=== PATIENT | male | born 1960 | race African-American/Black ===

== ENCOUNTER 2019-02-22 09:46 | Emergency (ER) ==
[2019-02-22 09:53] VITALS: TEMP 97.2; BMI 25.6
--- NOTE | 2019-02-22 10:08 | ED.PDOC ---
General ED Provider: Dr. BAKARI FELDMAN Chief Complaint: Syncope Stated Complaint: WEAKNESS, NEAR SYNCOPE. States was working in a house when he bent over, then suddenly stood up (staighted up) and experienced profound dizziness, light headedness feeling as if he would pass out/ Co Worker was there to assist him, prevented him from falling. [place] pain in back of neck, recurrent and previouls advised he had a pinched nerve. Time Seen by Physician: 10:00 Mode of Arrival: Wheelchair Information Source: Patient, Family Referred to ED by: PCP (Within 1-2 weeks) Nursing and Triage Documentation Reviewed and Agree: Yes Does patient meet sepsis criteria?: No System Inflammatory Response Syndrome: Not Applicable Sepsis Protocol: For patient's 13 years and over: Temp is 96.8 and below OR 101 and greater Pulse >90 BPM Resp >20/minute Acutely Altered Mental Status Are patient's symptoms suggestive of a new infection, such as: -Pneumonia -Skin, Soft Tissue -Endocarditis -UTI -Bone, Joint Infection -Implantable Device -Acute Abdominal Infection -Wound Infection -Meningitis -Blood Stream Catheter Infection -Unknown Neurological Complaint Exam - Syncope/Near Syncope Complaint/Exam Onset/Duration: 45 min ago Symptoms Are: Resolved Episodes Lasting: Minutes Number of Episodes: 1 Episodes Witnessed: Yes Loss of Consciousness: No Associated Head Trauma: No Review of Systems - Review Of Systems Constitutional: Reports: No symptoms Eyes: Reports: No symptoms Ears, Nose, Mouth, Throat: Reports: No symptoms Respiratory: Reports: No symptoms Cardiac: Reports: Lightheadedness GI: Reports: No symptoms : Reports: No symptoms Musculoskeletal: Reports: No symptoms Skin: Reports: No symptoms Neurological: Reports: Numbness (Lt cervical spine deg related change with symptoms LT U/L Extremity at times), Other (dizziness) Endocrine: Reports: No symptoms Hematologic/Lymphatic: Reports: No symptoms All Other Systems: Reviewed and Negative Past Medical History - Past Medical History Previously Healthy: Yes Endocrine: Reports: None Cardiovascular: Reports: None Respiratory: Reports: None Hematological: Reports: None Gastrointestinal: Reports: None Genitourinary: Reports: None Neuro/Psych: Reports: None Musculoskeletal: Reports: None, Other (neck pain) Cancer: Reports: None - Surgical History General Surgical History: Reports: None - Family History Family History: Reports: None - Social History Smoking Status: Current every day smoker, Light tobacco smoker Hx Substance Use: No Alcohol Screening: None Physical Exam - Physical Exam Appearance: Well-appearing, No pain distress, Well-nourished Ill-appearing: None Pain Distress: None Eyes: ARCHIE, EOMI, Conjunctiva clear ENT: Ears normal, Nose normal, Oropharynx normal Respiratory: Airway patent, Breath sounds clear, Breath sounds equal, Respirations nonlabored Cardiovascular: RRR, Pulses normal, No rub, No murmur GI/: Soft, Nontender, No masses, Bowel sounds normal, No Organomegaly Musculoskeletal: Normal strength, ROM intact, No edema, No calf tenderness Skin: Warm, Dry, Normal color Neurological: Sensation intact, Motor intact, Reflexes intact, Cranial nerves intact, Alert, Oriented Psychiatric: Affect appropriate, Mood appropriate Interpretation - Radiology Interpretation Radiology Interpretation By: Radiologist Exam Interpreted: CT Scan (Cervical -deg disc disease, facet joint disease/ Ct Head-age related changes) Critical Care Note - Critical Care Note Total Time (mins): 60 Course - Course Hematology/Chemistry: 02/22/19 09:55 02/22/19 09:55 Orders, Labs, Meds: Lab Review 02/22/19 02/22/19 02/22/19 09:55 09:55 09:55 WBC 3.29 L RBC 5.33 Hgb 15.2 Hct 42.5 MCV 79.7 L MCH 28.5 MCHC 35.8 H RDW Coeff of Tiki 13.8 Plt Count 144 Immature Gran % (Auto) 0.3 Neut % (Auto) 46.5 Lymph % (Auto) 44.1 [place] % (Auto) 6.4 Eos % (Auto) 2.4 Baso % (Auto) 0.3 Immature Gran # (Auto) 0.0 Neut # (Auto) 1.5 L Lymph # (Auto) 1.5 [place] # (Auto) 0.2 L Eos # (Auto) 0.1 Baso # (Auto) 0.0 Sodium 138.6 Potassium 3.69 Chloride 102.6 Carbon Dioxide 28.3 Anion Gap 11.39 BUN 11.6 Creatinine 0.90 Estimated GFR (MDRD) 106.00 BUN/Creatinine Ratio 12.88 Glucose 133.7 H Calcium 9.54 Total Bilirubin 1.71 H AST 28.5 ALT 22.3 Alkaline Phosphatase 50.7 Troponin I < 0.012 Total Protein 7.89 Albumin 4.51 Globulin 3.38 Albumin/Globulin Ratio 1.33 Influ A Molecular Assay Negative by naat Influ B Molecular Assay Negative by naat Orders Category Date Time Status EKG-(ED ONLY) Stat CARDIO 02/22/19 10:12 Completed CBC W/ AUTO DIFF Stat LAB 02/22/19 09:55 Completed CMP [COMPREHENSIVE METABOLIC PANEL] Stat LAB 02/22/19 09:55 Completed FLU A & B MOLECULAR [FLU A/B MOLECULAR] Stat LAB 02/22/19 09:55 Completed RAPID STREP SCREEN [MOLECULAR GROUP A STREP] Stat LAB 02/22/19 09:55 Completed TROPONIN I Stat LAB 02/22/19 09:[address] CERVICAL SPINE W/O CONTRAST Stat RADS 02/22/19 10:[address] HEAD W/O CONTRAST Stat RADS 02/22/19 10:12 Completed Vital Signs: Temp Pulse Resp BP Pulse Ox 02/22/19 11:02 48 L 16 120/69 02/22/19 09:47 97.2 F L 74 20 151/81 H 98 Departure - Departure Time of Disposition: 11:30 Disposition: HOME SELF-CARE Discharge Problem: Postural dizziness with near syncope, Bradycardia on ECG, Cervicalgia, Other cervical disc degeneration at C5-C6 level Instructions: Hypotension (ED), Cervical Spinal Stenosis (ED), Bradycardia (ED) , Near Syncope (ED), Degenerative Disc Disease (ED) Condition: Good Pt referred to PMD for follow-up: Yes (See PMD in 7-14 days) IPMP verified?: No Additional Instructions: Change positions slowly Avoid abrupt change in positions that potentially can cause orthostatic dizziness and loss of consciousness May take Ibuprofen or tylenol for pain Schedule follow up appointment with PCP. Suggest Holter monitor and MRI cervical spine Avoid climbing heights If dizziness persistent avoid driving Allergies/Adverse Reactions: Allergies cashew nut Adverse Reaction (Verified 02/22/19 09:56) tramadol Adverse Reaction (Verified 02/22/19 09:56) Home Medications: Ambulatory Orders 1 [No Reported Medications] 02/22/19 Disposition Discussed With: Patient, Family Musculoskeletal Complaint Exam - Neck Pain Complaint/Exam Mechanism of Injury: Reports: No known trauma Onset/Duration: Several months ago Symptoms Are: Still present (intermittently) Timing: Intermittent Episodes Lasting: Minutes Initial Severity: Mild Current Severity: Mild Location: Reports: Discrete, Radiating (Lt cervical into shoulder and lt arm) Character: Reports: Aching Aggravating: Reports: Movement Alleviating: Reports: Position Associated Signs and Symptoms: Denies: Swelling, Redness, Bruising, Fever, Nuchal rigidity, Weakness, Headache, Paresthesia Related History: Reports: Similar episode Meningitis Risk Factors: Reports: None Cervical Spine Injury Risk Factors: Reports: None Related Surgical History: Reports: None Carotid Bruit Present: No Pain on Passive Flexion: No Positive Kernig's Sign: No ROM Limited In: Present: Left, Side bending Tenderness: Present: Paraspinal Radiates to: Present: Left arm Focal Weakness: Present: None Focal Sensory Loss: Reports: None Nexus Low Risk Criteria: No post-midline CS tender, No evidence of intoxicat., No Altered LOC, No focal neuro deficit, No distracting injuries Differential Diagnoses: Other (Cervical degerative joint disease)
--- NOTE | 2019-02-22 11:02 | CT ---
EXAM: CT Head HISTORY: Dizziness COMPARISON: None TECHNIQUE: CT head performed without contrast FINDINGS: There is no mass effect, midline shift, or intracranial hemmorhage. Flor white differenti ation is preserved. There is no extra-axial collection. The ventricles, sulci, and basal cisterns a re patent and symmetric. There is mild chronic ischemic disease of the white matter and cerebral vol ume loss. There is no depressed calvarial fracture. The mastoid air cells are clear. Mild mucosal t hickening of the maxillary a sinuses with area of polypoid mucosal thickening left maxillary sinus li rose mucous retention cyst. Mild mucosal thickening ethmoid air cells. There are intracranial athe rosclerotic calcifications. IMPRESSION: 1. No acute intracranial abnormality. 2. Mild chronic ischemic disease of the white matter and cerebral volume loss. 3. Sinusitis/sinus mucosal changes.
--- NOTE | 2019-02-22 11:09 | CT ---
EXAM: CT cervical spine without contrast HISTORY: Numbness and shoulder pain, left side of neck, 4 months COMPARISON: None TECHNIQUE: CT cervical spine performed without intravenous contrast. Coronal and sagittal reformatt ed images obtained. FINDINGS: Straightening of the normal cervical lordosis. Vertebral bodies normal height. No fractu re. No subluxation. Mild intervertebral disc space narrowing C5-C6 and moderate intervertebral disc space narrowing C6-C7. Endplate degenerative change C6-C7. Multilevel facet and uncovertebral hype rtrophy. Prevertebral soft tissues appear normal. Mild emphysema lung apices C2-C3: Posterior disc osteophyte complex and facet arthrosis causing moderate right neural foraminal narrowing. C3-C4: Posterior disc osteophyte complex and facet arthrosis causing mild central canal and moderate bilateral neural foraminal narrowing. C4-C5: Posterior disc osteophyte complex and facet arthrosis causing mild to moderate central canal and mild bilateral neural foraminal narrowing. C5-C6: Posterior disc osteophyte complex and facet arthrosis causing moderate central canal, mild ri ght and moderate left neural foraminal narrowing. C6-C7: Posterior disc osteophyte complex and facet arthrosis causing moderate central canal and mode rate to severe bilateral neural foraminal narrowing. C7-T1: Posterior disc osteophyte complex and facet arthrosis causing mild right neural foraminal jesse rowing. IMPRESSION: 1. No fracture or subluxation. 2. Chronic discogenic degenerative disease and facet arthrosis. Please see segmental analysis, noti ng multilevel central canal and neural foraminal narrowing. 3. Straightening of the normal cervical lordosis. 4. Mild emphysema.
[2019-02-22 11:59] VITALS: BP 118/71
== END 2019-02-22 12:00 | disposition home or self-care (01) ==
LOC: ED 09:46
DX: R55 Syncope and collapse (principal); R53.1 Weakness; R42 Dizziness and giddiness; M54.2 Cervicalgia; R20.0 Anesthesia of skin; Z72.0 Tobacco use; R00.1 Bradycardia, unspecified
CPT/HCPCS: 36415; 80053; 84484; 85025; 87502; 87651; 93005; 93010; 99283